=== PATIENT | female | born 1985 | race Caucasian/White ===

== ENCOUNTER 2024-09-03 18:11 | Emergency (ER) | payer SELFPAY ==
[~2024-09-03] VITALS: Ht 170.2 cm; Wt 92.5 kg
[2024-09-03 18:17] VITALS: O2SAT 99
[2024-09-03] MEDS ORDERED: BENZ100C86 MT (21:34)
[2024-09-03 21:50] VITALS: BP 118/74; PULSE 72; RESP 17; TEMP 37.1; O2SAT 99
== END 2024-09-03 21:50 | disposition home or self-care (01) ==
LOC: ER 18:21
DX: R50.9 Fever, unspecified (principal); Z53.21 Procedure and treatment not carried out due to patient leaving prior to being seen by health care provider
CPT/HCPCS: 99283